=== PATIENT | male | born 1965 | race Hispanic/Latino ===

== ENCOUNTER 2021-06-22 11:45 | Emergency (ER) | payer BC ==
[~2021-06-22] VITALS: Ht 175.3 cm; Wt 93.0 kg
[~2021-06-22 11:45] MED LIST: HYDROXYZ HCL25 MG PO; MEDDOSEPAK PO
[2021-06-22] MEDS ORDERED: ERYTHROMYCIN O3.5 GM OS (12:38)
[2021-06-22 13:00] VITALS: BP 180/82
== END 2021-06-22 13:00 | disposition home or self-care (01) | DRG 125 ==
LOC: ED 11:45
DX: S05.02XA Injury of conjunctiva and corneal abrasion without foreign body, left eye, initial encounter (principal); I10 Essential (primary) hypertension; F17.210 Nicotine dependence, cigarettes, uncomplicated; X58.XXXA Exposure to other specified factors, initial encounter; Y92.89 Other specified places as the place of occurrence of the external cause; Y99.0 Civilian activity done for income or pay

== ENCOUNTER 2022-05-08 05:18 | Emergency (ER) | payer BC ==
[2022-05-08] VITALS (15 sets, daily range): BP systolic 141–209; BP diastolic 74–113
[~2022-05-08] VITALS: Ht 170.2 cm; Wt 81.0 kg
[~2022-05-08 05:18] MED LIST changes: +ERYTHROMYCIN O3.5 GM OS
[2022-05-08] MEDS ORDERED: CAPOTEN25 MG PO (05:50)
[2022-05-08 06:12] LABS: IMMATURE GRANULOCYTES 0.3 % (0.0-5.0); MEAN CELL VOLUME 100.6 fL CALC (80.0-100.0); MEAN CORPUSCULAR HGB 33.5 pG CALC (26.0-32.0); MEAN CORPUSCULAR HGB CONC 33.3 g/dL CAL (32.0-36.0); NEUT# 11.31 thou/uL (1.82-7.42); RED BLOOD COUNT 5.1 mill/uL (4.70-6.10); RED CELL DISTRI WIDTH 12.4 % (11.5-15.5)
[2022-05-08 06:15] LABS: ALKALINE PHOSPHATASE 98 u/l (38-126); ANION GAP 13 (6-22 (CALC)); BILIRUBIN, TOTAL 0.6 mg/dL (0.0-1.4); BUN 17 mg/dL (9-20); BUN/CREATININE RATIO 12 (12-20 (CALC)); CARBON DIOXIDE 26 mmol/l (22-30); CHLORIDE 98 mmol/l (95-108); CREATININE 1.5 mg/dL (0.7-1.3); GFR FOR AFR.AMER. 58 ML/MIN (>=60 (CALC)); GFR OTHER RACES 48 ML/MIN (>=60 (CALC)); LIPASE 379 u/l (23-300); POTASSIUM 4.1 mmol/l (3.5-5.1); SGOT/AST 34 u/l (17-59); SODIUM 133 mmol/l (137-146)
[2022-05-08 06:17] LABS: HEMATOCRIT 51.3 % (39.0-50.0); HEMOGLOBIN 17.1 g/dl (14.0-18.0)
[2022-05-08 06:45] LABS: ALBUMIN 4.6 g/dL (3.2-5.0); TOTAL PROTEIN 8.4 g/dL (6.3-8.2)
[2022-05-08 08:48] LABS: URINE BILIRUBIN - DIPSTICK NEGATIVE (NEGATIVE); URINE BLOOD DIPSTICK NEGATIVE (NEGATIVE); URINE COLOR YELLOW; URINE GLUCOSE - DIPSTICK NEGATIVE (NEGATIVE); URINE KETONE NEGATIVE (NEGATIVE); URINE LEUK ESTERASE NEGATIVE (NEGATIVE); URINE PH 7.5 (4.5-8.0); URINE PROTEIN - DIPSTICK TRACE mg/dL (NEG-TRACE); URINE UROBILINOGEN - DIPSTICK 0.2 E.U./dL (0.2)
[2022-05-08 08:49] LABS: URINE NITRITE - DIPSTICK NEGATIVE (Negative)
[2022-05-08] MEDS ORDERED: TORADOL PO (09:26)
[2022-05-08] MEDS ORDERED: TAMSULOSIN0.4 MG PO (09:26)
== END 2022-05-08 09:40 | disposition home or self-care (01) | DRG 694 ==
LOC: ED 05:18
PROVIDERS: Emergency Medicine
DX: N13.2 Hydronephrosis with renal and ureteral calculous obstruction (principal); I10 Essential (primary) hypertension; F17.200 Nicotine dependence, unspecified, uncomplicated
CPT/HCPCS: Q9967